=== PATIENT | female | born 1970 | race Caucasian/White ===

== ENCOUNTER → 2017-03-14 | Outpatient (CLI) | payer BC ==
--- NOTE | 2017-03-14 23:41 | RADRPT ---
PROCEDURE: Right knee radiographs. CLINICAL INDICATION: Right knee pain. TECHNIQUE: Four views. Weight bearing. Frontal, lateral, oblique, and patellar view. COMPARISON: No prior studies are available for comparison. FINDINGS: There is no fracture or dislocation. The soft tissues are normal. Articular surfaces are intact. There is no lytic or blastic lesion. There is no radiopaque foreign body. IMPRESSION: 1. Normal images of the right knee. RPTAT: QQ .Basim Zuniga MD, MD Date Time Electronically viewed and signed by .Basim Zuniga MD, on 03/14/2017 23:41 .R/
--- NOTE | 2017-03-15 04:08 | HKNOTE ---
DATE OF SERVICE: CHIEF COMPLAINT: Right knee pain. HISTORY OF PRESENT ILLNESS: This is a 46-year-old female who is complaining of increasing right knee pain. She states that the pain is throughout the right knee. She has occasional locking, catching and instability. She denies any history of trauma. She has had previous physical therapy with no pain relief. The pain is sharp. It does not radiate. She denies any groin or back pain. She does not use any assistive devices or braces. She does not take any pain medications. GAIT: Nonantalgic gait, reciprocal gait pattern. RIGHT KNEE: Neutral alignment, 0 to 130 degrees range of motion. Stable to varus valgus stress, negative Sarah, negative anterior drawer, negative posterior drawer, negative Babatunde's. Medial and lateral joint line tenderness. LEFT KNEE EXAMINATION: Neutral alignment, 0 to 130 degrees range of motion. Stable to varus valgus stress, negative Sarah, negative anterior drawer, negative posterior drawer, negative Babatunde's. Medial and lateral joint line tenderness. MOTOR STRENGTH: 5/5, hamstrings, tibialis anterior, gastrocsoleus and extensor hallucis longus bilaterally. X-RAYS RIGHT KNEE: Three views of the right knee demonstrate no abnormalities. IMPRESSION: A 46-year-old female with right knee pain that has been worsening. PLAN: She will obtain an MRI of her right knee. She will return following her MRI to go over the results. Dictated By: ELVIS TAMEZ/PAOLA Conf#: [id number] DID#: [id number] TOBY
== END | disposition home or self-care (01) ==
LOC: HKI 15:33
PROVIDERS: ATTEND Orthopaedic Surgery Adult Reconstructive Orthopaedic Surgery
DX: M25.561 Pain in right knee (principal)
CPT/HCPCS: 73564; G0463

== ENCOUNTER → 2017-03-21 | Outpatient (CLI) | payer BC ==
--- NOTE | 2017-03-22 04:44 | HKNOTE ---
DATE OF SERVICE: 03/21/2017 CHIEF COMPLAINT: Followup right knee pain. HISTORY OF PRESENT ILLNESS: This is a 46-year-old female who was complaining of increasing right kn ee pain. She has difficulty performing her activities of daily living. She is very active and has pain that is sharp and constant. She is taking ibuprofen for pain control. She has not had any pre vious treatment. She recently had an MRI and is here to go over the results. RIGHT KNEE EXAMINATION: Neutral alignment. Tender over the lateral joint line. A 0 to 130 degrees range of motion. Negative Babatunde's, negative Sarah, negative anterior drawer, negative posteri or drawer. MOTOR STRENGTH: 5/5 hamstrings, quadriceps, tibialis anterior, gastrocsoleus. MRI RIGHT KNEE: There were no tears identified in the cruciate ligaments or menisci. There is a fl uid collection over the IT band. There is chondromalacia of the lateral facet of the patella. IMPRESSION: A 46-year-old female with the right knee iliotibial band syndrome and chronic patellar chondromalacia. PLAN: She was instructed to take ibuprofen as needed. We will give her a prescription for physical therapy of the right knee. She will follow up as needed in the future. Dictated By: ELVIS TAMEZ/PAOLA Conf#: [id number] DID#: [id number]
== END | disposition home or self-care (01) ==
LOC: HKI 16:20
PROVIDERS: ATTEND Orthopaedic Surgery Adult Reconstructive Orthopaedic Surgery
DX: M22.41 Chondromalacia patellae, right knee (principal); M76.31 Iliotibial band syndrome, right leg
CPT/HCPCS: G0463